=== PATIENT | male | born 1995 | race Caucasian/White ===

== ENCOUNTER 2021-07-02 20:37 | Emergency (ER) | payer BC, MEDICAID ==
[~2021-07-02] VITALS: Ht 170.2 cm; Wt 113.4 kg
[2021-07-02 23:36] VITALS: BP 100/60
== END 2021-07-02 23:39 | disposition home or self-care (01) ==
LOC: ER 20:37
DX: N43.3 Hydrocele, unspecified (principal)
CPT/HCPCS: 76870